=== PATIENT | male | born 2000 | race Caucasian/White ===

== ENCOUNTER 2024-02-21 04:22 | Emergency (ER) | payer OTHER, SELFPAY ==
[2024-02-21 04:30] VITALS: BP 125/77; PULSE 129; RESP 19; TEMP 36.8; O2SAT 98; BMI 23.6
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
[2024-02-21 06:48] VITALS: BP 175/88; PULSE 129; RESP 21; O2SAT 99
== END 2024-02-21 06:52 | disposition home or self-care (01) ==
PROVIDERS: Emergency Provider Emergency Medicine
DX: S09.90XA Unspecified injury of head, initial encounter (principal); F10.129 Alcohol abuse with intoxication, unspecified; R45.6 Violent behavior
CPT/HCPCS: 70450; 72125; 99284